=== PATIENT | male | born 1980 | race Caucasian/White ===

== ENCOUNTER 2017-01-20 13:14 | Emergency (ER) | payer MEDICAID, OTHER ==
[2017-01-20 15:49] LABS: PH,URINE 6.5 (5.0-8.0); URINE BILIRUBIN NEGATIVE (NEGATIVE); URINE BLOOD NEGATIVE (NEGATIVE); URINE GLUCOSE (UA) NEGATIVE (NEGATIVE); URINE LEUKOCYTE ESTERASE NEGATIVE (NEGATIVE); URINE NITRITE NEGATIVE (NEGATIVE); URINE PROTEIN NEGATIVE (NEGATIVE); URINE UROBILINOGEN NORMAL (0-1 mg/dl)
[2017-01-20 15:51] LABS: URINE APPEARANCE CLEAR; URINE COLOR YELLOW
[2017-01-20] MEDS ORDERED: CEFTRIAXONE SODIUM 250 MG VIAL ONE (16:16)
[2017-01-21 15:29] LABS: CHLAMYDIA BD Negative (Negative); N.GONORRHOEAE BD Negative (Negative); SOURCE Urine (())
== END 2017-01-20 16:23 | disposition home or self-care (01) ==
LOC: ED 13:14
DX: R59.0 Localized enlarged lymph nodes (principal); N41.9 Inflammatory disease of prostate, unspecified
CPT/HCPCS: 87491; 87591; 81003; 99283 ×2; 96372; J0696